=== PATIENT | female | born 1960 | race Hispanic/Latino ===

== ENCOUNTER 2020-04-25 12:09 | Emergency (ER) | payer OTHER ==
[~2020-04-25] VITALS: Ht 152.4 cm; Wt 80.0 kg
[~2020-04-25 12:09] MED LIST: ULTRAM50 M1 PO
[2020-04-25] MEDS ORDERED: MOTRIN400 MG PO (14:11)
[2020-04-25 14:26] VITALS: BP 138/71
== END 2020-04-25 14:26 | disposition home or self-care (01) | DRG 556 ==
LOC: ED 12:09
DX: M79.672 Pain in left foot (principal)